=== PATIENT | female | born 1960 | race Caucasian/White ===

== ENCOUNTER → 2017-04-19 | Outpatient (CLI) | payer OTHER ==
[2017-04-19 12:42] LABS: BUN/CREATININE RATIO 16.1 (6.0-26.0); CALCIUM 9.7 mg/dL (8.4-10.2); POTASSIUM 4.3 mmol/L (3.6-5.0)
== END ==
LOC: LAB 12:14
PROVIDERS: Orthopaedic Surgery
DX: E87.5 Hyperkalemia (principal)

== ENCOUNTER 2017-06-10 09:00 | Outpatient (RCR) | payer OTHER | END 2017-08-08 | disposition home or self-care (01) | LOC: PT | DX: Z47.1 Aftercare following joint replacement surgery (principal); M17.11 Unilateral primary osteoarthritis, right knee; Z96.651 Presence of right artificial knee joint ==

== ENCOUNTER → 2017-11-08 | Outpatient (CLI) | payer OTHER | LOC: PT 13:01 | DX: Z01.818 Encounter for other preprocedural examination (principal) ==

== ENCOUNTER 2017-12-27 10:00 | Outpatient (RCR) | payer OTHER | END 2017-12-27 10:30 | disposition home or self-care (01) | LOC: PT 10:00 | DX: Z47.89 Encounter for other orthopedic aftercare (principal) ==

== ENCOUNTER 2018-04-25 09:00 | Outpatient (RCR) | payer OTHER | END 2018-04-25 09:30 | disposition home or self-care (01) | LOC: PT 09:00 | DX: H81.90 Unspecified disorder of vestibular function, unspecified ear (principal) ==

== ENCOUNTER 2020-07-29 10:50 | Outpatient (RCR) | payer BC ==
[2020-09-28] MEDS ORDERED: LEVOTHYROXINE100 MC2 PO (10:26)
[2020-09-28] MEDS ORDERED: WELLBUTRIN XL150 M2 PO (10:26)
[2020-09-28] MEDS ORDERED: KLONOPIN 1MG1 MG PO (10:26)
[2020-09-28] MEDS ORDERED: BUSPIRONE HYDRO10 MG PO (10:26)
[2020-09-28] MEDS ORDERED: TRILEPTAL 300M300 MG PO (10:26)
[2020-09-28] MEDS ORDERED: LAMICTAL 100MG100 MG PO (10:27)
[2020-09-28] MEDS ORDERED: TOPAMAX50 M1 PO (10:27)
[2020-09-28] MEDS ORDERED: FLONASE SENSIM5.9 ML NS (10:28)
[2020-09-28] MEDS ORDERED: ESTRADIOL10 MCG VG (10:29)
== END 2020-08-15 17:00 | disposition home or self-care (01) ==
LOC: PT 10:50
DX: M25.512 Pain in left shoulder (principal)

== ENCOUNTER → 2020-09-28 | Outpatient (CLI) | payer BC ==
[~2020-09-28] MED LIST: BUSPIRONE HYDRO10 MG PO; ESTRADIOL10 MCG VG; FLONASE SENSIM5.9 ML NS; KLONOPIN 1MG1 MG PO; LAMICTAL 100MG100 MG PO; LEVOTHYROXINE100 MC2 PO; TOPAMAX50 M1 PO; TRILEPTAL 300M300 MG PO; WELLBUTRIN XL150 M2 PO
[2020-09-28 10:00] VITALS: BP 130/83
[2020-09-28 10:34] LABS: HEMOGLOBIN 13.8 g/dL (12.5-16.0); MEAN PLATELET VOLUME 9.3 fl (7.4-10.4); RED BLOOD COUNT 4.55 M/mm3 (4.10-5.30); RED CELL DISTRIBUTION WIDTH 12.7 % (11.5-14.5); WHITE BLOOD COUNT 7.6 K/mm3 (4.8-10.8)
[2020-09-28 10:38] LABS: ALBUMIN 4.1 g/dL (3.5-5.0); POTASSIUM 3.8 mmol/L (3.5-5.1)
[2020-09-28 10:39] LABS: CALCIUM 9.3 mg/dL (8.3-10.5)
[2020-09-28 10:40] LABS: TOTAL PROTEIN 6.9 g/dL (6.4-8.3)
[2020-09-28 10:42] LABS: TOTAL BILIRUBIN 0.4 mg/dL (0.2-1.2)
[2020-09-28 12:33] VITALS: BP 148/84
[2020-09-28 15:22] LABS: POTASSIUM 3.7 mmol/L (3.5-5.1)
[2020-09-28 15:23] LABS: CALCIUM 8.7 mg/dL (8.3-10.5)
== END ==
LOC: AMSURD 09:51
PROVIDERS: Nurse Practitioner
DX: A08.4 Viral intestinal infection, unspecified (principal)
CPT/HCPCS: J7030

== ENCOUNTER 2023-05-05 08:00 | Outpatient (RCR) | payer BC | END 2023-05-30 | disposition home or self-care (01) | LOC: PT → OT 11:28 | DX: M25.512 Pain in left shoulder (principal) ==